=== PATIENT | male | born 1980 | race Caucasian/White ===

== ENCOUNTER 2022-10-28 06:17 | Emergency (ER) | payer SELFPAY ==
[~2022-10-28] VITALS: Ht 165.1 cm; Wt 68.0 kg
[2022-10-28 06:19] VITALS: O2SAT 99
[2022-10-28] MEDS ORDERED: LIDOCAINE HCL/EPINEPHRINE 1%-EPI 1:100,000 20 ML VIAL INFIL ONE (06:45)
[2022-10-28] MEDS ORDERED: LIDOCAINE HCL/EPINEPHRINE 1%-EPI 1:100,000 10 ML VIAL INFIL NR (07:15)
[2022-10-28] MEDS ORDERED: TOPUD PO (08:22)
[2022-10-28 09:12] VITALS: BP 127/84; PULSE 80; RESP 16; TEMP 98.5
== END 2022-10-28 09:16 | disposition home or self-care (01) ==
LOC: ER 06:17
DX: S01.01XA Laceration without foreign body of scalp, initial encounter (principal); X58.XXXA Exposure to other specified factors, initial encounter; Y93.89 Activity, other specified; Y92.89 Other specified places as the place of occurrence of the external cause; Y99.8 Other external cause status
CPT/HCPCS: 70450; 12001; 99284; J3490; Z7610 ×3